=== PATIENT | male | born 1975 | race Caucasian/White ===

== ENCOUNTER 2019-03-19 02:28 | Emergency (ER) | payer SELFPAY, OTHER ==
[2019-03-19] MEDS: IBUPROFEN 600 MG TAB PO (04:06)
== END 2019-03-19 05:56 | disposition home or self-care (01) ==
LOC: FTE 02:28
DX: L02.11 Cutaneous abscess of neck (principal); E11.9 Type 2 diabetes mellitus without complications; F17.210 Nicotine dependence, cigarettes, uncomplicated
CPT/HCPCS: 10060; 99283-25